=== PATIENT | female | born 1935 ===

== ENCOUNTER 2021-07-29 13:15 | Inpatient (IN) | payer OTHER ==
[~2021-07-29] VITALS: Ht 152.4 cm; Wt 72.6 kg
[2021-07-29] MEDS ORDERED: JANUMET XR 1001 EACH PO (15:53)
[2021-07-29] MEDS ORDERED: NORVASC5 MG PO (15:53)
[2021-07-29] MEDS ORDERED: PROTONIX40 MG PO (15:53)
[2021-07-29] MEDS ORDERED: HYZAAR 100-251 EACH PO (15:54)
[2021-07-29] MEDS ORDERED: TENORMIN50 M1 PO (15:54)
== END 2021-08-02 15:09 | disposition home or self-care (01) | DRG 735 ==
LOC: OB/GYN 07-31 07:00 → O/R 07-31 07:35 → OB/GYN 07-31 07:35
PROVIDERS: ADMIT Specialist; ATTEND Specialist
PROC: 0UT94ZZ Resection of Uterus, Percutaneous Endoscopic Approach (ICD-10-PCS; 2021-07-31)
PROC: 0UT74ZZ Resection of Bilateral Fallopian Tubes, Percutaneous Endoscopic Approach (ICD-10-PCS; 2021-07-31)
PROC: 0UT24ZZ Resection of Bilateral Ovaries, Percutaneous Endoscopic Approach (ICD-10-PCS; 2021-07-31)
PROC: 0DTU4ZZ Resection of Omentum, Percutaneous Endoscopic Approach (ICD-10-PCS; 2021-07-31)
PROC: 0JQC3ZZ Repair Pelvic Region Subcutaneous Tissue and Fascia, Percutaneous Approach (ICD-10-PCS; 2021-07-31)
PROC: 07TC4ZZ Resection of Pelvis Lymphatic, Percutaneous Endoscopic Approach (ICD-10-PCS; principal; 2021-07-31 07:00)
DX: C54.1 Malignant neoplasm of endometrium (principal); N72 Inflammatory disease of cervix uteri; N80.0 Endometriosis of uterus; D25.1 Intramural leiomyoma of uterus; N84.0 Polyp of corpus uteri; N83.291 Other ovarian cyst, right side; N83.292 Other ovarian cyst, left side; Z20.822 Contact with and (suspected) exposure to COVID-19; N81.11 Cystocele, midline